=== PATIENT | male | born 1965 | race Asian ===

== ENCOUNTER 2022-05-29 08:01 | Outpatient (CLI) | payer BC | END 2022-05-29 08:02 | disposition home or self-care (01) | LOC: CSHMRI 08:01 | PROVIDERS: ATTEND Family Medicine | DX: R51.9 Headache, unspecified (principal) | CPT/HCPCS: 70551 ==

== ENCOUNTER 2022-10-18 05:59 | Day surgery (SDC) | payer BC ==
[2022-10-16 14:53] VITALS: BMI 24.2
[2022-10-18] MEDS ORDERED: PROPOFOL 40 ML ONE (07:08)
[2022-10-18] MEDS ORDERED: Lidocaine 1% PF 5 ML VIAL ONE (07:10)
== END 2022-10-18 08:47 | disposition home or self-care (01) ==
LOC: CSHSDC 05:59
PROVIDERS: ATTEND Internal Medicine Gastroenterology
PROC: 0DJD8ZZ Inspection of Lower Intestinal Tract, Via Natural or Artificial Opening Endoscopic (ICD-10-PCS; principal; 2022-10-18)
DX: Z12.11 Encounter for screening for malignant neoplasm of colon (principal); E78.5 Hyperlipidemia, unspecified; J45.909 Unspecified asthma, uncomplicated; K64.9 Unspecified hemorrhoids; Z88.0 Allergy status to penicillin
CPT/HCPCS: J2704